=== PATIENT | female | born 1985 | race Caucasian/White ===

== ENCOUNTER 2020-08-20 07:18 | Emergency (ER) | payer OTHER ==
[~2020-08-20] VITALS: Ht 167.6 cm; Wt 108.9 kg
[2020-08-20 07:20] VITALS: Ht 167.6 cm; Wt 108.9 kg
[2020-08-20 09:04] VITALS: BP 123/74
== END 2020-08-20 09:04 | disposition home or self-care (01) ==
LOC: ED 07:18
DX: J03.90 Acute tonsillitis, unspecified (principal); J45.909 Unspecified asthma, uncomplicated; E03.9 Hypothyroidism, unspecified; Z20.828 Contact with and (suspected) exposure to other viral communicable diseases
CPT/HCPCS: J1100; U0003